=== PATIENT | female | born 1985 | race Asian ===

== ENCOUNTER 2017-11-08 17:21 | Emergency (ER) | payer OTHER ==
[~2017-11-08] VITALS: Ht 170.2 cm; Wt 97.5 kg
[2017-11-08 20:08] VITALS: BP 120/74; TEMP 98.4
== END 2017-11-08 20:09 | disposition home or self-care (01) ==
LOC: ED 17:21
DX: M25.562 Pain in left knee (principal); S80.02XA Contusion of left knee, initial encounter; X58.XXXA Exposure to other specified factors, initial encounter; Y92.210 Daycare center as the place of occurrence of the external cause
CPT/HCPCS: 96372; 99282; J1885

== ENCOUNTER 2019-11-08 20:14 | Emergency (ER) | payer OTHER ==
[~2019-11-08] VITALS: Ht 170.2 cm; Wt 95.3 kg
[2019-11-08 23:24] VITALS: BP 154/82; TEMP 97.9
== END 2019-11-08 23:24 | disposition home or self-care (01) ==
LOC: ED 20:14
DX: J45.901 Unspecified asthma with (acute) exacerbation (principal)
CPT/HCPCS: 87502; 87651; 94664; 94760; 96365; 96375; 99284; J2930; J3475

== ENCOUNTER 2022-07-09 15:34 | Emergency (ER) | payer OTHER ==
[~2022-07-09] VITALS: Ht 170.2 cm; Wt 110.7 kg
[2022-07-09 16:46] LABS: PLATELET COUNT 185 K/uL (152-353)
[2022-07-09 17:01] LABS: POTASSIUM 3.3 mmol/L (3.6-5.2)
[2022-07-09 18:30] VITALS: BP 146/73; TEMP 98.3
== END 2022-07-09 18:35 | disposition home or self-care (01) ==
LOC: ED 15:34
PROVIDERS: Emergency Medicine
DX: E86.0 Dehydration (principal); J45.909 Unspecified asthma, uncomplicated
CPT/HCPCS: 36415; 80053; 81002; 85027; 94664; 96360; 99284

== ENCOUNTER 2023-04-25 12:49 | Emergency (ER) | payer OTHER ==
[~2023-04-25] VITALS: Ht 170.2 cm; Wt 99.8 kg
[2023-04-25 13:30] VITALS: BP 158/103; TEMP 97.9
[2023-04-25 15:12] LABS: PLATELET COUNT 187 K/uL (152-353)
== END 2023-04-25 16:35 | disposition home or self-care (01) ==
LOC: ED 12:49
PROVIDERS: Family Medicine
DX: U07.1 COVID-19 (principal)
CPT/HCPCS: 85027; 99282